=== PATIENT | female | born 1955 | race Caucasian/White ===

== ENCOUNTER 2021-12-15 17:02 | Emergency (ER) | payer OTHER ==
[2021-12-15 17:14] LABS: Urine Blood Trace-intact (Negative); Urine Glucose Negative (Negative); Urine Protein Negative (Negative); Urine Specific Gravity 1.015 (1.005-1.030)
[2021-12-15 17:50] LABS: Barbiturates NEGATIVE (NEGATIVE); Benzodiazepines NEGATIVE (NEGATIVE); Cocaine NEGATIVE (NEGATIVE); METHAMPHETAM NEGATIVE (NEGATIVE); Methadone NEGATIVE (NEGATIVE); Opiates NEGATIVE (NEGATIVE); Phencyclidine NEGATIVE (NEGATIVE); THC Cannibis NEGATIVE (NEGATIVE)
[2021-12-15 17:52] LABS: Urine Bacteria <20 /HPF (<20); Urine Mucus Slight /HPF (None Seen); Urine RBC <5 /HPF (None Seen)
[2021-12-15] MEDS ORDERED: LORAZEPAM 1 MG TABLET ONE (18:48)
[2021-12-15 19:32] LABS: Absolute Lymphocytes (CBC) 1.4 K/uL (0.7-4.9); Hematocrit 42.1 % (36.0-45.0); MPV 7.2 fL (7.6-11.3); RBC Red Blood Cell Count 4.68 M/uL (3.86-4.86)
[2021-12-15 19:38] LABS: Protime INR 1.01
[2021-12-15 19:46] LABS: SARS-CoV-2 Antigen Rapid Res Negative (Negative)
[2021-12-15 20:02] LABS: ALT/SGPT 38 U/L (12-78); AST/SGOT 32 U/L (15-37); Albumin 3.8 g/dL (3.4-5.0); Alkaline Phosphatase 84 U/L (45-117); BUN Blood Urea Nitrogen 10 mg/dL (7-18); Bicarbonate 27 mmol/L (21-32); Bilirubin Total 0.4 mg/dL (0.2-1.0); Glomerular Filtration Rate 85 ml/min (=/>90); Glucose Level 105 mg/dL (74-106); Potassium 3.5 mmol/L (3.5-5.1); Protein, Total 7.3 g/dL (6.4-8.2); Sodium Level 139 mmol/L (136-145)
[2021-12-15 20:04] LABS: Bilirubin Direct < 0.1 mg/dL (0-0.2)
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
[2021-12-16] MEDS ORDERED: ROPINIROLE HCL 1 MG TAB ONE (00:36)
--- NOTE | 2021-12-16 13:36 | EKG ---
Test Date: 2021-12-15 Test Time: 18:43:03 Tub Mender: PH MEASUREMENT RESULTS: Intervals: Rate: 76 NC: 128 QRSD: 88 QT: 414 QTc: 465 [place]: P: 63 NC: 128 QRS: 5 T: 9 INTERPRETIVE STATEMENTS: Normal sinus rhythm Possible Left atrial enlargement Borderline ECG No previous ECG available for comparison Electronically Signed On 12-16-21 13:34:40 CDT by Oj Rodríguez
[2021-12-17 04:17] VITALS: BP 162/104; TEMP 98.5; O2SAT 98
== END 2021-12-16 02:54 ==
LOC: ER 17:02
DX: R45.851 Suicidal ideations (principal); Z20.822 Contact with and (suspected) exposure to COVID-19
CPT/HCPCS: 36415; 80048; 80076; 80307; 80320; 80329; 81003; 81015; 85025; 85610; 85730; 87811; 93005; 99285